=== PATIENT | male | born 1950 | race Caucasian/White ===

== ENCOUNTER 2025-09-02 09:52 | Outpatient (REF) | payer MEDICARE, SELFPAY ==
--- NOTE | ~2025-09-02 | XR_ITS ---
EXAMINATION: X-ray bilateral knees CLINICAL INFORMATION: Knee pain COMPARISON: None TECHNIQUE: Right knee 3 views. Left knee 3 views. FINDINGS: Right knee: Diffuse bone demineralization. Moderate medial and lateral compartment arthritis, joint space loss, osteophytes. Moderate-severe patellofemoral arthritis, as seen on the lateral projection. No visible acute fracture or dislocation. No effusion. No abnormal soft tissue calcification. No radiopaque foreign body seen. Left knee: Diffuse bone demineralization. Total knee arthroplasty with normal alignment of the arthroplasty components. Intact hardware. No suspicious perihardware lucencies. No visible acute fracture or malalignment. No significant effusion is seen. No abnormal soft tissue calcification. No radiopaque foreign body.. XR/XR Knee Corey 3V IMPRESSION: Right knee: Advanced tricompartment osteoarthritis. No radiographic evidence of acute fracture. Left knee: Status post total knee arthroplasty. No findings suggest hardware failure. No radiographic evidence of acute fracture. Electronically signed by: Madi Eugene MD 09/02/2025 11:51 AM EDT
== END 2025-09-02 09:53 | disposition home or self-care (01) ==
LOC: HO.HOSX 09:52
PROVIDERS: Visit Provider Orthopaedic Surgery
DX: M17.11 Unilateral primary osteoarthritis, right knee (principal); M25.562 Pain in left knee; Z96.652 Presence of left artificial knee joint
CPT/HCPCS: 73562

== ENCOUNTER 2025-09-02 10:49 | Outpatient (AMB) | payer OTHER, SELFPAY ==
--- NOTE | 2025-09-02 10:56 | A.OFFVIS_ITS ---
Vital Signs 09/02/25 11:02 Height 5 ft 8 in Weight 145 lb BMI 22.0 Intake Visit Reasons: Right knee pain Intake Note: Edgar is a 74 year old male who presents with complaints of progressively worsening right knee pain. The patient did undergo left total knee replacement surgery approximately 10 years ago. Reports mild intermittent discomfort in his left knee. He describes his right knee pain as sharp and severe in nature, 09/04. His right knee pain has gotten worse over the last few years in spite of continued non operative treatments. He has tried physical therapy exercises which aggravated his pain. He has also tried Tylenol and anti-inflammatory medicines which gave him minimal relief. The patient has difficulty walking even short distances because of his right knee pain. At this point his right knee pain is interfering with his activities of daily living and his ability to sleep well through the night. Allergies No Known Allergies Allergy (Verified 09/02/25 11:02) Medication List - Last Reconciled 09/02/25 by Pranav Moore MD aspirin 81 mg PO DAILY atorvastatin 80 mg PO DAILY famotidine 20 mg PO BID sertraline 50 mg PO DAILY Physical Exam Vital Signs: BMI result Body Mass Index 22.0 Const Other: Well-nourished well-developed very friendly male awake alert and oriented x3 in no acute distress Extrem Other: Bilateral lower extremity examination shows good capillary refill, no skin lesions noted, normal sensation light touch Left knee examination shows that the surgical incision is well healed, no erythema, full active extension and flexion to 120 degrees, his patella tracks well Right knee examination shows a minimal effusion, palpable crepitus with range of motion, pain with range of motion, range of motion from -3 degrees to 115 degrees, no instability Results Reviewed Results Reviewed: X-rays of the patient's right knee show end-stage degenerative joint disease with grade 4 [id number] arthritis in the lateral compartment, subchondral sclerosis, osteophyte formation, no acute bony abnormalities X-rays of the patient's left knee show a total knee arthroplasty in good position with no signs of loosening, no acute bony abnormalities Assessment & Plan Assessment & Plan (1) Right knee pain: Code(s): M25.561 - Pain in right knee (2) Osteoarthritis of right knee: Code(s): M17.11 - Unilateral primary osteoarthritis, right knee Category: Medical Plan Mr. Bishop presents with progressively worsening right knee pain due to end- stage degenerative joint disease. I had a lengthy discussion with the patient regarding the treatment options. At this point he has failed continued non operative treatments. The risks and benefits of right total knee replacement surgery were discussed at length with the patient. The patient wishes to proceed with surgery. He will be scheduled for our next available date. I will see him back prior to his surgery to answer any final questions that he might have. He will continue with his activity modifications in the meantime. Feel free to call me at any time should questions regarding his orthopedic management arise. I spent 21 minutes in reviewing the patient's records and imaging studies, seeing the patient and documenting in the medical record. Orders: Orders XR Knee Corey 3V Today M25.561 - Pain in right knee, M25.562 - Pain in left knee Coding Level of Care Code New Pt Level 3 (55381) Complex EM visit Add On G2211 Diagnoses Right knee pain M25.561 Osteoarthritis of right knee M17.11
[2025-09-02 11:02] VITALS: BMI 22.0
== END 2025-09-02 11:28 | disposition home or self-care (01) ==
LOC: HO.HOS 10:49
PROVIDERS: PCP Internal Medicine; Visit Provider Orthopaedic Surgery
DX: M25.561 Pain in right knee (principal); M17.11 Unilateral primary osteoarthritis, right knee
CPT/HCPCS: 99204; G2211

== ENCOUNTER → 2025-09-02 11:04 | Outpatient (BNV) | payer OTHER, SELFPAY | PROVIDERS: Visit Provider Radiology Diagnostic Ultrasound | DX: M17.11 Unilateral primary osteoarthritis, right knee (principal) | CPT/HCPCS: 73562 ==

== ENCOUNTER → 2025-11-17 10:27 | Outpatient (BNVA) | payer MEDICARE, SELFPAY | DX: Z01.818 Encounter for other preprocedural examination (principal) ==